=== PATIENT | female | born 1975 | race Caucasian/White ===

== ENCOUNTER 2018-01-04 02:46 | Emergency (ER) | payer MEDICAID, SELFPAY ==
[2018-01-04 02:48] VITALS: BP 134/90; PULSE 106; RESP 14; TEMP 36.2; O2SAT 99; BMI 20.6
--- NOTE | 2018-01-04 03:00 | CT_ITS ---
STUDY: CT BRAIN WITHOUT CONTRAST REASON FOR EXAM: Female, 42 years old. HEAD INJURY RADIATION DOSAGE (If Supplied By Facility): CTDIvol = ( 44.99 ) mGy, DLP = ( 745.49 ) mGycm TECHNIQUE: Transaxial CT imaging of the brain was performed without administration of intravenous contrast material. Individualized dose optimization techniques were used for this CT. COMPARISON: None. FINDINGS: Normal soft tissue structures. Normal calvarium. Normal size ventricles and extra-axial spaces for the patient's age. Normal white matter tracts of the cerebral hemispheres. Normal basal ganglia and thalami. Normal brainstem. Normal cerebellum. There is no intracranial hemorrhage. There are no findings of an acute ischemic infarction. Normal visualized paranasal sinuses. CT/Brain/Head without Contrast IMPRESSION: Normal unenhanced CT scan of the brain. Electronically Signed: Fawn Carlisle MD at 6:03 EDT Tel , Service support ,
--- NOTE | 2018-01-04 03:11 | CT_ITS ---
STUDY: CT SOFT TISSUE NECK WITH CONTRAST REASON FOR EXAM: Female, 42 years old. Neck laceration. Head injury RADIATION DOSAGE (If Supplied By Facility): CTDIvol = ( 9.32 ) mGy, DLP = ( 209.48 ) mGycm TECHNIQUE: The patient was scanned in a multi-detector CT scanner. High resolution transaxial imaging was performed following intravenous administration of 75 ml of Isovue 370 contrast material. Sagittal and coronal images were reconstructed. Individualized dose optimization techniques were used for this CT. COMPARISON: None. FINDINGS: Penetrating wound in the soft tissues on left side of the neck extending through the upper part of the sternocleidomastoid muscle. Air bubbles are seen in the paravertebral muscles from penetrating wound. There is no evidence of vascular injury. Normal bilateral parotid glands. Normal bilateral unit educator spaces. Normal bilateral parapharyngeal spaces. Normal bilateral carotid spaces. Normal bilateral sublingual and submandibular glands and spaces. Normal visualized nasopharynx. Normal retropharyngeal space. Normal perivertebral space. Normal visualized bilateral faucial tonsils. The visualized tongue, tongue base and oropharynx are normal. The visualized cervical lymph nodes (levels I-) are within normal size limits, and maintain normal morphology. There is no demonstrated solid or cystic mass lesion. There is no abnormal contrast enhancement. Normal epiglottis, bilateral vallecula and hypopharynx. The pre-epiglottic and paraglottic adipose spaces are normal. Normal visualized bilateral piriform sinuses, aryepiglottic folds, vocal cords, and arytenoid-cricoid articulations. Normal subglottic trachea. Normal bilateral lobes of the thyroid gland. Normal visualized pulmonary apices. Normal visualized paranasal sinuses. Normal visualized cervical spine. CT/Soft Tissue Neck WITH Contrast IMPRESSION: Penetrating wound in the soft tissues on left side of the neck extending through the upper part of the sternocleidomastoid muscle. Air bubbles are seen in the paravertebral muscles from penetrating wound. There is no evidence of vascular injury. Electronically Signed: Fawn Carlisle MD at 6:00 EDT Tel , Service support ,
[2018-01-04 03:19] LABS: Absolute Lymphocyte Count 1.96 X10^3/ul (0.83-4.51); Absolute Neutrophil Count 2.2 X10^3/uL (2.0-7.7); Basophil# 0.02 X10^3/uL; Basophil% 0.4 % (0-1); Eosinophil# 0.13 X10^3/uL; Eosinophils% 2.8 % (0-5); Hematocrit 37.5 % (37-47); Hemoglobin 12.9 g/dl (12.0-15.0); Lymphocyte # 1.96 X10^3/ul (4.0); Lymphocyte % 41.7 % (19-41); Mean Corp Hgb Conc 34.4 g/gl (32-36); Mean Corpuscular Hgb 32.6 pg (27.0-32.0); Mean Corpuscular Volume 94.7 fL (81-99); Mean Platelet Vol. 9.4 fl (6.2-12.0); Monocyte# 0.37 X10^3/uL; Monocyte% 7.9 % (0-10); Neutrophil # 2.21 X10^3/uL (2.7-7.7); POSITIVE COUNT NO; POSITIVE DIFFERENTIAL NO; POSITIVE MORPHOLOGY NO; Platelet Count 258 K/mm3 (150-450); RBC Distribution Width CV 12.8 % (11.6-14.6); RBC Distribution Width SD 43.4 fl (35.1-43.9); Red Blood Count 3.96 M/mm3 (4.2-5.4); White Blood Count 4.7 K/mm3 (4.4-11.0)
[2018-01-04 04:24] LABS: Anion Gap 10 (5-15); BUN 10 mg/dL (7-18); BUN/Creat Ratio 13.1 RATIO (10-20); Calcium,Total 8.3 mg/dL (8.5-10.1); Chloride 107 mmol/L (98-107); Creatinine, Serum 0.76 mg/dL (0.55-1.02); EST Glomerular Filtration Rate 88 mL/min (>60); Est Glom Filt Rate - Afr Amer 106 mL/min (>60); Estimated Creatinine Clearance 69.26 ml/min; Glucose 98 mg/dL (74-106); Potassium 3.2 mmol/L (3.5-5.1); Pregnancy, Serum, hCG Quali. NEGATIVE Negative (0-9 Nonpreg); Sodium Level 142 mmol/L (136-145)
[2018-01-04 05:07] VITALS: BP 125/82; PULSE 76; RESP 16
[2018-01-04] MEDS: Morphine 4 MG/ML Syringe IV (05:08)
[2018-01-04] MEDS: Ondansetron 4 MG/2 ML Vial IV (05:09)
--- NOTE | 2018-01-04 05:26 | ED.RN ---
laceration to left neck. Upper laceration 1cm x 2cm. Depth not assessed. Distal to laceration is a 2 cm x 0.3cm that attaches to minoo documented laceration. Third lower laceration 1cm. Bleeding controlled at present with DSD.
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
[2018-01-04 05:57] VITALS: BP 121/89; PULSE 82; RESP 16; O2SAT 99
[2018-01-04 06:01] LABS: Amphetamine Urine VISTA POSITIVE (<1000 ng/mL); Barbiturate Urine VISTA NEGATIVE (< 200 ng/mL); Benzodiazepine Urine VISTA NEGATIVE (< 200 ng/mL); Cocaine Urine VISTA NEGATIVE (< 300 ng/mL); Ecstacy Urine VISTA NEGATIVE (< 500 ng/mL); Methadone Urine VISTA NEGATIVE (< 300 ng/mL); PCP Urine VISTA NEGATIVE (< 25 ng/mL); THC Urine VISTA POSITIVE (< 50 ng/mL); Vista UDS pH Range 6
--- NOTE | 2018-01-04 06:08 | ED.RN ---
2 superficial lacerations noted to right side of neck. no bleeding noted.
== END 2018-01-04 06:11 | disposition short-term general hospital (02) ==
PROVIDERS: Emergency Provider Emergency Medicine
DX: S11.91XA Laceration without foreign body of unspecified part of neck, initial encounter (principal); X78.0XXA Intentional self-harm by sharp glass, initial encounter; Y93.9 Activity, unspecified; Y92.9 Unspecified place or not applicable; F32.9 Major depressive disorder, single episode, unspecified
CPT/HCPCS: 36415; 70450; 70491; 80048; 80307; 80320; 84703; 85025; 96374; 96375; 99285; Q9967; A4216; G0480

== ENCOUNTER 2018-01-21 00:01 | Emergency (ER) | payer MEDICAID, SELFPAY ==
[2018-01-21 00:02] VITALS: BP 127/83; PULSE 103; RESP 16; TEMP 36.7; BMI 19.7
--- NOTE | 2018-01-21 00:23 | RAD_ITS ---
STUDY: X-RAY CHEST REASON FOR EXAM: Female, 42 years old. The right lateral chest pain status post fall TECHNIQUE: PA and lateral views of the chest. COMPARISON: None. FINDINGS: No confluent infiltrate. Nodular densities overlying bilateral mid lung bases, likely representing nipple shadows. There is no demonstrated pleural abnormality. Normal size heart. Normal mediastinum and anne marie. Normal visualized pulmonary arteries. Normal visualized aortic arch and descending thoracic aorta. Normal visualized thoracic spine. Normal visualized ribs, clavicles, and shoulders. There is no demonstrated abnormality of the visualized soft tissue structures of the upper abdomen. RAD/Chest PA and Lateral IMPRESSION: No evidence of acute cardiopulmonary disease. Electronically Signed: Roel Grace MD at 0:50 EDT Tel , Service support ,
--- NOTE | 2018-01-21 00:26 | ED.VISSUMM ---
- ER Visit Summary Date of Service: 01/21/18 Chief Complaint: Right lower rib cage pain History of Present Illness: The patient is a 42 F with a right lower rib cage pain for approximately a week. She said she tripped and fell and hit the wall about a week ago she has had pain since that time. Pain increases with movement or deep breathing. She denies any other chest pain. She denies any shortness of breath. No hemoptysis. No leg pain or swelling. No abdominal pain. She denies any dysuria or hematuria. Physical Examination: Well-appearing middle-age female. Vital signs are stable. Afebrile. H EENT exam unremarkable. Neck nontender no lymphadenopathy. Lungs clear to auscultation bilaterally. Heart regular rhythm no murmur rate about 100. Abdomen is soft and nontender. Normal bowel sounds no peritoneal signs. Right upper quadrant is nontender. Her right lower rib cage is tender palpation. There is no ecchymosis or bruising. No subcu air or crepitance. No gross bony deformities. It does appear to be musculoskeletal reproducible pain. She is moving all 4 extremities. They are neurovascularly intact. Calves are nontender without edema or cords. Back exam nontender except for the right lower lateral rib cage. Spine is nontender. Neurologically she is awake alert with no focal motor deficits. Test Results: Two-view chest x-ray was obtained and shows no acute abnormality. Normal cardiac silhouette and lung sneed. No bony abnormalities. No rib fractures. Read both by myself and the radiologist. Emergency Department Course and Treatment: Patient treated with 1 Percocet p.o. Treatment Plan: Repeat exam patient is doing well at 0109. She can use Motrin and Tylenol for pain. Disposition: Discharge Impression: Acute right lateral lower rib cage musculoskeletal pain secondary to contusion This note was generated with [employer] dictation software. It may contain incorrect words, spelling, and punctuation that were not noted in review of the chart prior to signing ED Disposition - Plan for ED Patient: Chief Complaint: Flank Pain Referrals: Care Physician,No Primary [NON-STAFF] -
[2018-01-21] MEDS: oxyCODONE 5 MG Tablet 10 MG PO (00:44)
[2018-01-21 01:11] VITALS: BP 127/83; PULSE 103; RESP 15
--- NOTE | 2018-01-21 01:11 | ED.DEP ---
ED Disposition - Plan for ED Patient: Disposition: Home or Assisted Living Chief Complaint: Flank Pain Instructions: ED Contusion Chest Wall Referrals: Hamlet Ross MD [STAFF PHYSICIAN] - 1 Week if not improving Additional Instructions: Ice to rib cage. Tylenol and Motrin for pain. Your x-rays did not show any broken bones or other abnormalities.
== END 2018-01-21 01:15 | disposition home or self-care (01) ==
PROVIDERS: Emergency Provider Emergency Medicine
DX: R07.81 Pleurodynia (principal); S20.211A Contusion of right front wall of thorax, initial encounter; W01.198A Fall on same level from slipping, tripping and stumbling with subsequent striking against other object, initial encounter; Y93.9 Activity, unspecified; Y92.9 Unspecified place or not applicable
CPT/HCPCS: 71046; 99283; A4216

== ENCOUNTER 2018-02-07 16:49 | Emergency (ER) | payer MEDICAID, SELFPAY ==
[2018-02-07 16:50] VITALS: BP 106/72; PULSE 86; RESP 18; TEMP 36.8; O2SAT 100; BMI 19.5
[2018-02-07 17:25] VITALS: BP 115/75; PULSE 82; RESP 14; O2SAT 98
[2018-02-07] MEDS: oxyCODONE 5 MG Tablet PO (17:36)
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
--- NOTE | 2018-02-07 18:22 | ED.DEP ---
ED Disposition - Plan for ED Patient: Chief Complaint: Upper Extremity Injury Instructions: ED Shoulder Pain [facility] Prescriptions: Oxycodone HCl/Acetaminophen [Percocet 5/325] 1 tab PO Q6H PRN PRN 3 Days #12 tab PRN Reason: Pain Naproxen [Naprosyn] 500 mg PO BID PRN #20 tab Referrals: [facility] Beronica Lyman [Primary Care Provider] - Ben Fernandez MD [STAFF PHYSICIAN] - 3-5 Days
== END 2018-02-07 18:59 | disposition home or self-care (01) ==
PROVIDERS: Emergency Provider Emergency Medicine
DX: M25.512 Pain in left shoulder (principal)
CPT/HCPCS: 73030; 99283

== ENCOUNTER 2018-04-10 21:36 | Emergency (ER) | payer MEDICAID, SELFPAY ==
[2018-04-10 21:37] VITALS: BP 112/86; PULSE 101; RESP 20; TEMP 37.1; O2SAT 99; BMI 20.5
--- NOTE | 2018-04-10 22:03 | RAD_ITS ---
STUDY: X-RAY - LEFT HAND REASON FOR EXAM: Female, 42 years old. Fall yesterday. Pain in second digit. TECHNIQUE: 3 view(s) of the hand. COMPARISON: None. FINDINGS: Normal radiocarpal articulation. Normal distal radioulnar joint. Normal visualized carpal bones. Normal carpal articulations Normal carpometacarpal articulation of the thumb. Normal second through fifth carpometacarpal joints. Normal metacarpi. 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 Normal interphalangeal joint of the thumb. Normal proximal and distal phalanges of the thumb. Normal metacarpophalangeal joints of the second through fifth fingers. Normal proximal and distal interphalangeal joints of the second through fifth fingers. Normal phalanges of the second through fifth fingers. The soft tissue structures are unremarkable. RAD/Hand Min 3 Views IMPRESSION: No acute fracture or dislocation. Electronically Signed: Kilo Navarrete DO at 22:42 EDT Tel [phone], Service support ,
--- NOTE | 2018-04-10 22:04 | ED.VISSUMM ---
- ER Visit Summary Date of Service: 04/10/18 Chief Complaint: Cough, shortness of breath History of Present Illness: The patient is a 42 F presenting with cough, shortness of breath. She states that the symptoms have been ongoing for the past 2 weeks. She has a productive cough, subjective fever, rhinorrhea, sore throat. She has tried NyQuil and Mucinex at home with no relief. She denies sick contacts. Physical Examination: Vitals are stable. Patient is afebrile. Alert no acute distress. HEENT exam mild pharyngeal erythema with no exudate, uvula midline Neck is supple. Lungs are clear and equal bilaterally. Heart is regular rate and rhythm. Abdomen is soft nontender nondistended. Extremities are unremarkable. Skin is warm and dry. No focal neurologic deficit. Remainder of exam is unremarkable. Emergency Department Course and Treatment: Patient is given albuterol, Atrovent. Chest x-ray shows no acute process. Left hand x-ray shows no acute process. Her left index finger was put in an aluminum foam splint. She is given Naprosyn for pain. She is given prescription for Tessalon Perles and albuterol MDI. Her pulse ox with ambulation is 100% on room air. She is advised to follow-up with primary care physician. Advised return to ED if worsening complaints. Disposition: Discharge home Impression: Bronchitis, left index finger contusion This note was generated with [employer] dictation software. It may contain incorrect words, spelling, and punctuation that were not noted in review of the chart prior to signing ED Disposition - Plan for ED Patient: Chief Complaint: Shortness of Breath Instructions: ED Upper Resp Infec No Abx Tx Prescriptions: Benzonatate [Tessalon Perle] 200 mg PO TID PRN PRN #20 capsule PRN Reason: Cough Naproxen [Naprosyn] 500 mg PO BID PRN #20 tablet Referrals: Joyce Lyman,Beronica Johnson [Primary Care Provider] -
[2018-04-10] MEDS: Ipratropium/Albuterol Sulfate 3 ML AMPUL.NEB INHALATION (22:13)
[2018-04-10 22:20] VITALS: PULSE 74; RESP 17; O2SAT 95
--- NOTE | 2018-04-10 22:30 | RAD_ITS ---
STUDY: X-RAY CHEST REASON FOR EXAM: Female, 42 years old. Shortness of breath. Cough. TECHNIQUE: PA and lateral views of the chest. COMPARISON: January 21, 2018. FINDINGS: The lungs are hyperexpanded. There is no new mass or infiltrate. There is no demonstrated pleural abnormality. Normal size heart. Normal mediastinum and anne marie. Normal visualized pulmonary arteries. Normal visualized aortic arch and descending thoracic aorta. Normal visualized thoracic spine. Normal visualized ribs, clavicles, and shoulders. There is no demonstrated abnormality of the visualized soft tissue structures of the upper abdomen. RAD/Chest PA and Lateral IMPRESSION: No acute cardiopulmonary disease or interval change. Electronically Signed: Kilo Navarrete DO at 22:41 EDT Tel [phone], Service support ,
[2018-04-10 22:58] VITALS: O2SAT 100
--- NOTE | 2018-04-10 23:06 | ED.DEP ---
ED Disposition - Plan for ED Patient: Chief Complaint: Shortness of Breath Instructions: ED Upper Resp Infec No Abx Tx Prescriptions: Benzonatate [Tessalon Perle] 200 mg PO TID PRN PRN #20 capsule PRN Reason: Cough Naproxen [Naprosyn] 500 mg PO BID PRN #20 tablet Referrals: [facility],Beronica Johnson [Primary Care Provider] -
--- NOTE | 2018-04-11 11:22 | CM.ED ---
ED CALLBACK: Follow-up call placed to patient. No answer. Voicemail left with return contact information.
== END 2018-04-10 23:42 | disposition home or self-care (01) ==
PROVIDERS: Emergency Provider Emergency Medicine
DX: J40 Bronchitis, not specified as acute or chronic (principal); S60.022A Contusion of left index finger without damage to nail, initial encounter; R19.7 Diarrhea, unspecified; X58.XXXA Exposure to other specified factors, initial encounter; Y93.9 Activity, unspecified; Y92.9 Unspecified place or not applicable
CPT/HCPCS: 71046; 73130; 94640; 99283

== ENCOUNTER 2018-04-18 08:20 | Emergency (ER) | payer MEDICAID, SELFPAY ==
[2018-04-18 08:21] VITALS: BP 136/83; PULSE 106; RESP 16; TEMP 36.3; O2SAT 100; BMI 19.1
[2018-04-18 08:27] VITALS: BP 132/89; PULSE 76; RESP 18; O2SAT 99
--- NOTE | 2018-04-18 08:31 | ED.VISSUMM ---
- ER Visit Summary Date of Service: 04/18/18 Chief Complaint: Abdominal pain, nausea, vomiting diarrhea with onset yesterday at approximately 1700. History of Present Illness: The patient is a 42 F who presents with numerous complaints. She complains of bifrontal headache. Denies photophobia, change in vision or double vision. She denies earache or muffled hearing. She does complain of sore throat. There is no complaint of nasal congestion. She does report cough, which is nonproductive. She denies chest discomfort. She states she is vomited 10 times since onset and 4 or 5 loose stools. She has not noted blood in emesis or stool and no mucus in stool. She states that she has had no ill contacts. She has not been on antibiotics in the past month. She reports orthostatic symptoms, dry mouth and thirst. She denies decreased urine output. She also complains of mild chills. She does complain of weakness without paresthesia, anesthesia or motor weakness. She did report subjective fever. Please read written note for complete detail Physical Examination: Vital signs noted and blood pressure slightly elevated 136/83 and heart rate 106. Monitor reveals a sinus tachycardia. Head is atraumatic normocephalic. Pupils are equal round reactive. Extraocular muscles are intact. TMs are pearly white with landmarks noted. Nares patent with no drainage. Posterior pharynx without erythema or exudate. Uvula is midline. Tongue and buccal mucosa are dry. There is no dysphonia or dysphasia. Trachea is midline. There is no stridor with auscultation of the neck. Heart is regular without murmur, gallop or rub. S1 and S2 are normal. Lungs are clear to auscultation with good movement of air bilaterally. Abdomen soft with tenderness without guarding rebound tenderness. There is no CVA tenderness noted. Neuro exam is nonfocal. Please read written note for complete detail Test Results: None were obtained Emergency Department Course and Treatment: Since patient has no history of renal disease, diabetes and on no diuretic laboratory testing was not obtained. Furthermore with onset less than 24 hours based on literature laboratory testing is not indicated. She was treated with 1 L of normal saline and received 4 mg of Zofran IV push for her nausea. She also was treated orally with Imodium for the diarrhea and Bentyl for her cramping abdominal discomfort. Ms. Gonzalez was reassessed at 0950. She has had no vomiting or diarrhea since arrival. She has not urinated and has no urge to urinate. A second liter of normal saline was ordered. She received an additional 500 cc bolus. Treatment Plan: Since patient's arrival she had no diarrhea. She states her nausea has passed. She has passed p.o. challenge. She does have urge to urinate. Disposition: Discharged home in stable improved condition Impression: Abdominal pain with nausea, vomiting diarrhea Moderate dehydration This note was generated with [employer] dictation software. It may contain incorrect words, spelling, and punctuation that were not noted in review of the chart prior to signing ED Disposition - Plan for ED Patient: Disposition: Home or Assisted Living Chief Complaint: Nausea/Vomiting/Diarrhea Instructions: ED Vomiting Diarrhea Nonspecific Ad Referrals: Beronica Garzon [Primary Care Provider] - 3-5 Days if not improving
[2018-04-18] MEDS: Ondansetron 4 MG/2 ML Vial IV (08:43)
[2018-04-18] MEDS: Dicyclomine 10 MG Capsule 20 MG PO (08:43)
[2018-04-18] MEDS: Loperamide 2 MG Capsule 4 MG PO (08:43)
[2018-04-18] MEDS: 0.9% Normal Saline 1,000 ML 1000 ML IV (08:43)
[2018-04-18] MEDS: 0.9% Normal Saline 1,000 ML 500 ML IV (10:20)
[2018-04-18 10:23] VITALS: BP 135/94; PULSE 94; RESP 17; O2SAT 95
[2018-04-18 12:51] VITALS: BP 127/69; PULSE 73; RESP 15; O2SAT 100
== END 2018-04-18 12:52 | disposition home or self-care (01) ==
PROVIDERS: Emergency Provider Emergency Medicine
DX: R10.9 Unspecified abdominal pain (principal); R11.2 Nausea with vomiting, unspecified; R19.7 Diarrhea, unspecified; E86.0 Dehydration; J02.9 Acute pharyngitis, unspecified; R05 Cough; Z87.891 Personal history of nicotine dependence
CPT/HCPCS: 96361; 96374; 99283; J7030; J7040; J2405

== ENCOUNTER 2018-06-13 11:52 | Emergency (ER) | payer MEDICAID, SELFPAY ==
[2018-06-13 11:54] VITALS: BP 111/71; PULSE 107; RESP 17; TEMP 36.7; O2SAT 100; BMI 19.1
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
[2018-06-13] MEDS: oxyCODONE 5 MG Tablet PO (12:29)
== END 2018-06-13 13:16 | disposition home or self-care (01) ==
PROVIDERS: Emergency Provider Emergency Medicine
DX: S43.102A Unspecified dislocation of left acromioclavicular joint, initial encounter (principal); Y04.2XXA Assault by strike against or bumped into by another person, initial encounter; Y93.9 Activity, unspecified; Y92.9 Unspecified place or not applicable; Z72.0 Tobacco use
CPT/HCPCS: 73000; 99283

== ENCOUNTER 2019-08-05 06:53 | Emergency (ER) | payer MEDICAID, SELFPAY ==
[2019-08-05 06:55] VITALS: BP 128/102; PULSE 107; RESP 20; TEMP 36.6; O2SAT 98; BMI 21.6
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
[2019-08-05] MEDS: Ondansetron 4 MG/2 ML Vial IV (07:24)
[2019-08-05] MEDS: Morphine 4 MG/ML Syringe IV (07:24)
[2019-08-05 07:45] LABS: Absolute Lymphocyte Count 2.05 X10^3/uL (0.83-4.51); Absolute Neutrophil Count 4.3 X10^3/uL (2.0-7.7); Basophil# 0.03 X10^3/uL; Basophil% 0.4 % (0-1); Eosinophils% 1.4 % (0-5); Hematocrit 35.2 % (37-47); Hemoglobin 11.9 g/dL (12.0-15.0); Lymphocyte # 2.05 X10^3/ul (4.0); Mean Corp Hgb Conc 33.8 g/dL (32-36); Mean Corpuscular Hgb 31.8 pg (27.0-32.0); Mean Corpuscular Volume 94.1 fL (81-99); Mean Platelet Vol. 9.7 fl (6.2-12.0); Monocyte# 0.61 X10^3/uL; Monocyte% 8.6 % (0-10); NRBC Flagged by Analyzer 0 % (0-5); Neutrophil # 4.26 X10^3/uL (2.7-7.7); Neutrophil % 60.3 % (47-70); Platelet Count 346 K/mm3 (150-450); RBC Distribution Width CV 12.8 % (11.6-14.6); Red Blood Count 3.74 M/mm3 (4.2-5.4); White Blood Count 7.1 K/mm3 (4.4-11.0)
[2019-08-05 08:02] LABS: ALB/GLOB Ratio 1.2 RATIO (0.9-2.4); AST(SGOT) 28 U/L (15-37); Alanine Aminotransfer ALT/SGPT 26 U/L (13-56); Albumin, Serum 4.2 g/dL (3.2-5.0); Alkaline Phosphatase 39 U/L (45-117); Anion Gap 9 (5-15); BUN 20 mg/dL (7-18); BUN/Creat Ratio 23.4 RATIO (10-20); Calcium,Total 8.8 mg/dL (8.5-10.1); Chloride 108 mmol/L (98-107); Creatinine, Serum 0.85 mg/dL (0.55-1.02); EST Glomerular Filtration Rate 77 mL/min (>60); Est Glom Filt Rate - Afr Amer 93 mL/min (>60); Estimated Creatinine Clearance 60.67 ml/min; Globulin 3.5 g/dL (2.2-4.2); Glucose 112 mg/dL (74-106); Potassium 3.7 mmol/L (3.5-5.1); Protein, Total 7.7 g/dL (6.4-8.2); Sodium Level 140 mmol/L (136-145)
[2019-08-05 09:03] VITALS: BP 110/67; PULSE 71; RESP 16; O2SAT 98
[2019-08-05 09:08] LABS: Color, Urine Yellow (Yellow); Glucose, Dipstick Normal (Normal); Ketone-Dipstick Negative (Negative); Leukocyte Esterase-Dipstick 25 /ul (Negative); Mucous, Urine 0 SEEN /hpf (<or=2+); Nitrite-Dipstick Positive (Negative); Occult Blood-Urine 25 /ul (Negative); Protein-Dipstick 30 mg/dl (Negative); Urine Bilirubin Dipstick Negative (Negative); Urine Clarity Sl. Cloudy (Clear); Urine Urobilinogen Normal (Normal); Urine pH 6.5 (5.0 - 8.0)
[2019-08-05 09:12] LABS: Internal QC Validated? YES +Cl - CLEAR BKGD; Pregnancy, Urine Negative Negative
[2019-08-05 09:21] LABS: Bacteria RARE /hpf (None Seen); Red Blood Cells-Urine 0-5 SEEN /hpf (0-5); Squamous Epithelial Cells - UA 5-10 SEEN /hpf (5-10); White Blood Cells 0-5 SEEN /hpf (0-5)
[2019-08-05 09:51] VITALS: BP 111/56; PULSE 88; RESP 14; O2SAT 99
== END 2019-08-05 09:57 | disposition home or self-care (01) ==
PROVIDERS: Emergency Provider Emergency Medicine; PCP Internal Medicine
DX: S20.212A Contusion of left front wall of thorax, initial encounter (principal); S20.211A Contusion of right front wall of thorax, initial encounter; Y04.0XXA Assault by unarmed brawl or fight, initial encounter; Y93.9 Activity, unspecified; Y92.9 Unspecified place or not applicable
CPT/HCPCS: 74177; 80053; 81001; 81025; 85025; 96374; 96375; 99283; Q9967; A4216; J2405

== ENCOUNTER 2020-06-11 16:01 | Emergency (ER) | payer MEDICAID, SELFPAY ==
[2020-06-11 16:02] VITALS: BP 125/46; PULSE 86; RESP 15; TEMP 36.4; O2SAT 100; BMI 19.5
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
[2020-06-11] MEDS: Ketorolac 30 MG/ML Syringe IM (17:22)
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
== END 2020-06-11 18:49 | disposition home or self-care (01) ==
PROVIDERS: Emergency Provider Emergency Medicine
DX: S20.212A Contusion of left front wall of thorax, initial encounter (principal); Y04.0XXA Assault by unarmed brawl or fight, initial encounter; Y93.9 Activity, unspecified; Y92.9 Unspecified place or not applicable; Z87.81 Personal history of (healed) traumatic fracture
CPT/HCPCS: 71101; 96372; 99284

== ENCOUNTER 2020-11-01 16:20 | Emergency (ER) | payer MEDICAID, SELFPAY ==
[2020-11-01 16:21] VITALS: BP 129/95; PULSE 120; RESP 16; TEMP 36.4; O2SAT 100; BMI 19.1
--- NOTE | 2020-11-01 16:35 | RAD_ITS ---
STUDY: X-RAY - LEFT SHOULDER REASON FOR EXAM: Female, 45 years old. injury TECHNIQUE: 2 view(s) of the shoulder. COMPARISON: None. FINDINGS: Normal glenohumeral articulation. There is degenerative arthrosis of the acromioclavicular joint without inferior osseous spur formation. Slight proximal subluxation of the distal clavicle in relation to the acromion suggests a prior AC joint injury. Normal acromion. Normal humeral head and visualized proximal humerus. The soft tissue structures are unremarkable. There is no demonstrated fracture. Normal visualized pulmonary apex. RAD/Shoulder min 2 Views IMPRESSION: 1. No acute process 2. Slight proximal subluxation of the distal clavicle in relation to the acromion suggests a prior AC joint injury. Electronically Signed: Rory Trevizo MD at 17:46 EDT , Service support ,
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
[2020-11-01] MEDS: oxyCODONE 5 MG Tablet 10 MG PO (16:45)
[2020-11-01 17:16] VITALS: PULSE 72; RESP 15; O2SAT 97
== END 2020-11-01 17:18 | disposition home or self-care (01) ==
LOC: ED 17:07
PROVIDERS: Emergency Provider Emergency Medicine
DX: S40.012A Contusion of left shoulder, initial encounter (principal); Y04.0XXA Assault by unarmed brawl or fight, initial encounter; Y93.9 Activity, unspecified; Y92.9 Unspecified place or not applicable
CPT/HCPCS: 73030; 99284

== ENCOUNTER 2021-02-07 19:11 | Emergency (ER) | payer MEDICAID, SELFPAY ==
[2021-02-07 19:12] VITALS: BP 111/78; PULSE 86; RESP 16; TEMP 36.7; O2SAT 100; BMI 21.9
--- NOTE | 2021-02-07 19:38 | EX.ED.DYSGE1 ---
HPI History of Present Illness Chief Complaint: General Illness Informant: patient Narrative Narrative: Patient is a 45-year-old female who presents to the emergency department for Covid test. She states that she was recently incarcerated. She was exposed to Covid and released. She had a negative Covid test at that time. Shortly after being released she developed symptoms including cough, sore throat, chills, vomiting. This started approximately 4 days ago. She has not been taking anything for her symptoms. She did not get vaccinated for Covid. She denies any significant chest pain or shortness of breath. No headache. No neck stiffness. No rashes. She developed painful sores in her mouth. PFSH PFSH Home Medications ondansetron 4 mg PO Q8H PRN 4 Days #10 tab 02/07/21 [Rx Last Taken Unknown] Allergy/AdvReac Type Severity Reaction Status Date / Time acetaminophen [From Vicodin] AdvReac Nausea Verified 02/07/21 19:14 hydrocodone [From Vicodin] AdvReac Nausea Verified 02/07/21 19:14 hydromorphone HCl AdvReac Nausea Verified 02/07/21 19:14 [From Dilaudid] Social History Smoking Status: Never smoker ROS ROS ED Constitutional Constitutional ED: Denies fever(s) Eyes Eyes: Denies change in vision ENT ENT ED: Reports sore throat; Denies epistaxis Cardiovascular Cardiovascular: Denies chest pain Respiratory/Chest Respiratory/Chest: Reports cough; Denies dyspnea, dyspnea on exertion or sputum Gastrointestinal Gastrointestinal: Reports nausea and vomiting; Denies abdominal pain Genitourinary Genitourinary ED: Denies dysuria, hematuria or urinary frequency Musculoskeletal Musculoskeletal: Denies back pain or neck pain Integumentary Denies rash Neurologic Neurologic: Denies dizziness, headache(s) or weakness EXAM Physical Exam Const Vital Signs: 02/07/21 19:12 02/07/21 19:39 Temperature 98.1 F Temperature Source Temporal Pulse Rate 86 Respiratory Rate 16 Respiratory Effort Normal Non-Labored Blood Pressure 111/78 Blood Pressure Mean 89 Pulse Ox 100 Oxygen Delivery Method Room Air Positive well nourished and well developed General Appearance ED: well developed and NAD HEENT Reports normocephalic, head/scalp atraumatic and moist mucous membranes HEENT Narrative: Small aphthous ulcer present on the inside of left cheek. Eyes PERRL and EOMs intact bilaterally Neck supple Resp normal respiratory effort and clear to auscultation bilaterally Auscultation: Negative for rales, rhonchi or wheezes Cardio regular rate, regular rhythm and no murmurs GI normal to inspection, nondistended, normoactive bowel sounds and non-tender Palpation: soft; Negative for guarding or rebound tenderness present Extremity normal to inspection General Extremety ED: Negative for edema or tenderness General Extremity: Negative for edema Neuro Sensorium / Orientation: alert Motor Exam: strength 5/5 throughout Psych mental status grossly normal Skin no rashes or lesions noted MDM MDM MDM Narrative Medical decision making narrative: Patient presents the ED for URI symptoms. She is concerned about Covid as she did have a positive exposure. She was tested for the virus but this was prior to her developing any symptoms. On arrival to the ED vital signs within normal limits. She has benign physical exam. Will recheck Covid at this time. Covid test did come back positive. Will recommend symptomatic treatment. She is given a prescription for Zofran. No episodes of vomiting throughout ED stay. She has not had any oxygen desaturations. Patient is to self quarantine. I did advise obtaining a pulse oximeter she develops any shortness of breath to track oxygen saturation. Return precautions are reviewed with her. She understands and is agreeable this plan. Discharged home in stable condition. All questions were answered. Discharge Plan Triage Chief Complaint: General Illness ED Provider: Pierre Majano Dx/Rx/DC Orders Clinical Impression: COVID-19 Instructions: Coronavirus Disease 2019 (COVID-19): Caring for Yourself or Others Prescriptions: New ondansetron 4 mg tablet,disintegrating 4 mg PO Q8H PRN (Reason: nausea and vomiting) 4 Days Qty: 10 RF: 0 Primary Care Provider: Care Physician,No Primary Referrals: Care Physician,No Primary [Primary Care Provider] - 1 Week Disposition Disposition: Home, Self Care Discharge Date/Time: 02/07/21 20:32
== END 2021-02-07 20:32 | disposition home or self-care (01) ==
PROVIDERS: Emergency Provider Emergency Medicine
DX: U07.1 COVID-19 (principal)
CPT/HCPCS: 87426; 99282

== ENCOUNTER 2021-02-08 13:27 | Emergency (ER) | payer MEDICAID, SELFPAY ==
[2021-02-07 19:12] VITALS: BMI 21.9
[2021-02-08 13:28] VITALS: BP 125/87; PULSE 83; RESP 18; TEMP 35.7; O2SAT 100; BMI 21.5
[2021-02-08 14:05] VITALS: TEMP 36.7
--- NOTE | 2021-02-08 14:06 | EX.ED.DYSGE1 ---
HPI History of Present Illness Chief Complaint: Cold Sx Informant: patient Narrative Narrative: 45-year-old female presents out of concerns for COVID-19. She states that she was in [facility] and was released last due to a Covid outbreak. She states that she was tested in [facility] and was negative. When she returned home on night she began to feel ill. Since then she developed headache rhinorrhea sore throat body aches cough subjective fever and loss of taste and smell. She also endorses diarrhea. She has been trying to drink fluids but states nothing seems to taste very good to her. She has not been vaccinated. PFSH PFS Home Medications NK 02/08/21 [History Last Taken Unknown] Allergy/AdvReac Type Severity Reaction Status Date / Time acetaminophen [From Vicodin] AdvReac Nausea Verified 02/08/21 13:30 hydrocodone [From Vicodin] AdvReac Nausea Verified 02/08/21 13:30 hydromorphone HCl AdvReac Nausea Verified 02/08/21 13:30 [From Dilaudid] Social History (Updated 02/08/21 @ 14:[address] Ad Vogt, DO) Smoking Status: Never smoker substance use type: does not use ROS ROS ED Constitutional Constitutional ED: Reports chills and subjective; Denies weight loss Eyes Eyes: Denies change in vision or diplopia ENT ENT ED: Reports rhinorrhea and sore throat; Denies ear pain Cardiovascular Cardiovascular: Denies chest pain, orthopnea, palpitations or racing heartbeat Respiratory/Chest Respiratory/Chest: Reports cough; Denies dyspnea or orthopnea Gastrointestinal Gastrointestinal: Reports diarrhea; Denies abdominal pain, nausea or vomiting Genitourinary Genitourinary ED: Denies dysuria, hematuria or urinary frequency Musculoskeletal Musculoskeletal: Reports myalgias; Denies arthralgias Integumentary Denies abscess or rash Neurologic Neurologic: Reports headache(s); Denies weakness Psychiatric Psychiatric: Denies anxiety, depression, suicidal ideation or suicidal thoughts Endocrine Endocrinology: Denies polydipsia, polyphagia or polyuria Allergic/Immunologic Allergic/Immunologic ED: Denies mouth swelling, tongue swelling or urticaria EXAM Physical Exam Const Vital Signs: 02/08/21 13:28 02/08/21 13:53 02/08/21 14:05 Temperature 96.2 F L 98.1 F Temperature Source Temporal Oral Pulse Rate 83 Respiratory Rate 18 Respiratory Effort Normal Non-Labored Respiratory Pattern Normal Blood Pressure 125/87 H Blood Pressure Mean 99 Pulse Ox 100 Oxygen Delivery Method Room Air Positive well nourished and well developed General Appearance ED: well developed HEENT Reports normocephalic, head/scalp atraumatic and moist mucous membranes Eyes PERRL and EOMs intact bilaterally Neck no lymphadenopathy, supple and no JVD Resp normal respiratory effort and clear to auscultation bilaterally Cardio regular rate, regular rhythm and no murmurs GI normal to inspection, nondistended, normoactive bowel sounds and non-tender Palpation: soft Back/Spine no CVA tenderness and normal ROM Extremity normal to inspection General Extremety ED: Negative for edema General Extremity: Negative for edema Neuro oriented x3 and CN's II-XII intact bilaterally Sensorium / Orientation: alert Motor Exam: strength 5/5 throughout Psych mental status grossly normal Mood & Affect: Negative for depressed or tearful Skin no rashes or lesions noted and no wounds MDM MDM MDM Narrative Medical decision making narrative: Covid test was performed and is positive. Patient will be advised to quarantine. Return if worsening or concerns. Discharge Plan Triage Chief Complaint: Cold Sx ED Provider: Ad Vogt Dx/Rx/DC Orders Clinical Impression: COVID-19 Instructions: Coronavirus Disease 2019 (COVID-19): Caring for Yourself or Others Prescriptions: No Action NK RF: 0 Primary Care Provider: Care Physician,No Primary Referrals: Care Physician,No Primary [Primary Care Provider] - Disposition Disposition: Home, Self Care
[2021-02-08 14:18] VITALS: BP 125/86; PULSE 81; RESP 12; O2SAT 100
== END 2021-02-08 14:23 | disposition home or self-care (01) ==
PROVIDERS: Emergency Provider Emergency Medicine
DX: U07.1 COVID-19 (principal)
CPT/HCPCS: 87426; 99282

== ENCOUNTER 2021-02-10 10:11 | Emergency (ER) | payer MEDICAID, SELFPAY ==
[2021-02-10 10:12] VITALS: BP 109/73; PULSE 83; RESP 18; TEMP 36.6; O2SAT 100; BMI 21.9
[2021-02-10 10:13] VITALS: BP 109/73; PULSE 83; RESP 18; TEMP 36.6; O2SAT 100
--- NOTE | 2021-02-10 10:32 | EDS_ITS ---
HPI History of Present Illness Chief Complaint: Cough Informant: patient Onset/Context/Timing Onset: Weeks Context: gradual Timing: Continuous Current Severity: Mild Maximum Severity: Mild Associated Symptoms cough Narrative Narrative: 45-year-old female no seen past medical or surgical history currently on no medications. Had symptoms for little over a week. On Sunday got tested and was Covid positive. He is feeling short of breath. Also states she has had nausea vomiting and diarrhea. Denies fever. No hemoptysis. PE Risk Factors: Negative for Cancer, OCP + Smoking + > 35, Prior DVT or PE, Recent immobilization, Recent surgery and Recent travel Prior similar symptoms: No Recent Illness/Hospitalization: No PFSH PFSH no medical history Home Medications NK 02/08/21 [History Last Taken Unknown] ondansetron 4 mg PO Q8H PRN 4 Days #10 tab 02/10/21 [Rx Last Taken Unknown] Allergy/AdvReac Type Severity Reaction Status Date / Time acetaminophen [From Vicodin] AdvReac Nausea Verified 02/10/21 10:14 hydrocodone [From Vicodin] AdvReac Nausea Verified 02/10/21 10:14 hydromorphone HCl AdvReac Nausea Verified 02/10/21 10:14 [From Dilaudid] no surgical history Social History Smoking Status: Never smoker substance use type: does not use ROS ROS ED ROS Narrative Cough, nausea, vomiting and diarrhea. Review of Systems ROS Unobtainable: Denies due to encephalopathy Constitutional Constitutional ED: Denies fever(s) Eyes Eyes: Denies change in vision ENT ENT ED: Denies ear pain or sore throat Cardiovascular Cardiovascular: Denies chest pain Respiratory/Chest Respiratory/Chest: Reports cough and dyspnea Gastrointestinal Gastrointestinal: Reports diarrhea, nausea and vomiting; Denies abdominal pain Genitourinary Genitourinary ED: Denies dysuria Musculoskeletal Musculoskeletal: Denies myalgias Integumentary Denies rash Neurologic Neurologic: Denies headache(s) Psychiatric Psychiatric: Denies depression Endocrine Endocrinology: Denies polyuria Hematologic/Lymphatic Hematologic/Lymphatic: Denies easy bruising Allergic/Immunologic Allergic/Immunologic ED: Denies urticaria EXAM Physical Exam Narrative Exam Narrative: Middle-aged female no acute distress. Blood pressure 109/73. Pulse 83 and pulse ox 100% on room air no signs of hypoxia. HEENT exam unremarkable. Mildly dry mucous memories. Neck nontender no lymphadenopathy. Lungs clear to auscultation bilaterally. No rales, rhonchi or wheezing. Equal symmetrical. Heart regular rhythm rate about 80 no murmur. Abdomen soft nontender. Normal bowel sounds no peritoneal signs. Moving all 4 extremities. Calves nontender no edema. Back nontender. Neurologically awake and alert. Const Vital Signs: 02/10/21 10:12 02/10/21 10:13 02/10/21 10:48 Temperature 98 F 98 F Temperature Source Temporal Temporal Pulse Rate 83 83 Respiratory Rate 18 18 Respiratory Effort Non-Labored Short of Breath Blood Pressure 109/73 109/73 Blood Pressure Mean 85 85 Pulse Ox 100 100 Oxygen Delivery Method Room Air Room Air 02/10/21 11:13 02/10/21 12:00 Temperature 98 F 97.9 F Temperature Source Temporal Temporal Pulse Rate 81 69 Respiratory Rate 14 21 H Respiratory Effort Blood Pressure 113/69 108/56 L Blood Pressure Mean 83 73 Pulse Ox 100 99 Oxygen Delivery Method Room Air Room Air Positive well nourished and well developed; Negative for obese, cachectic, contractures or unkempt General Appearance ED: well developed and NAD; Negative for unkempt, cachectic, contractures or pallor Nutritional Appearance: Negative for cachectic or obese HEENT Reports dry mucous membranes; Denies moist mucous membranes atraumatic; Negative for trauma or tenderness Mouth ED: Yes dry mucous membranes Mouth: dry mucous membranes Eyes PERRL and EOMs intact bilaterally Neck no lymphadenopathy, supple, no meningeal signs and no JVD General: Negative for tenderness Resp normal respiratory effort and clear to auscultation bilaterally Auscultation: Negative for rales, rhonchi or wheezes Cardio regular rate, regular rhythm, S1 normal heart sound, S2 normal heart sound and no murmurs GI non-tender, non-distended and no masses Auscultation: normoactive bowel sounds Palpation: soft; Negative for tender, guarding or rebound tenderness present Back/Spine no CVA tenderness and normal to inspection General Back: Negative for CVA tenderness or tenderness Extremity normal to inspection General Extremety ED: Negative for edema or tenderness General Extremity: Negative for edema Neuro oriented x3 and CN's II-XII intact bilaterally Sensorium / Orientation: alert, oriented to person, oriented to place and orientation impaired; Negative for oriented to time, confused, lethargic or stuporous Motor Exam: strength 5/5 throughout Psych Appearance: Negative for unkempt Skin no wounds and skin turgor normal General Skin Exam: Negative for jaundice or pallor Lesions: no lesions Rashes: no rashes MDM MDM MDM Narrative Medical decision making narrative: Reportedly Covid positive patient with shortness of breath. Normal vital signs. Pulse ox 100%. Chest x-ray. Due to the nausea vomiting diarrhea I will get a BMP. Patient be treated IV fluids and IV Zofran. Mostly symptomatic treatment. She clinically does not need admission. Repeat exam at 12:55 PM. Patient is doing fine. We discussed her chest x-ray and electrolytes. She will be discharged home. I will refer her to the monoclonal antibody therapy hotline but she may not be a candidate. Lab Data Attestation: I reviewed the patient's lab results. Lab results narrative: Electrolytes unremarkable and potassium 3.1 normal gap 5. Creatinine 0.5. Glucose 94. Labs: Laboratory Results - last 24 hr 02/10/21 11:25 Sodium 139 Potassium 3.1 L Chloride 105 Carbon Dioxide 29.0 Anion Gap 5 BUN 11 Creatinine 0.53 L Estim Creat Clear Calc 96.28 Est GFR (MDRD) Af Amer 159 Est GFR (MDRD) Non-Af 131 BUN/Creatinine Ratio 20.6 H Glucose 94 Calcium 8.1 L Radiography Chest X-Ray - ED: 1 View, Read by ED Physician, Heart, Lungs, Mediastinum and No Acute Disease Diagnostic Testing: Old right rib fracture healed. No acute disease. No infiltrates. Discharge Plan Triage Chief Complaint: Cough ED Provider: Praful Knox Dx/Rx/DC Orders Clinical Impression: COVID-19 Instructions: Coronavirus Disease 2019 (COVID-19): Overview Prescriptions: New ondansetron 4 mg tablet,disintegrating 4 mg PO Q8H PRN (Reason: nausea and vomiting) 4 Days Qty: 10 RF: 0 No Action NK RF: 0 Primary Care Provider: Care Physician,No Primary Referrals: Brad Almanzar MD [NON-STAFF] - 3-5 Days Care Physician,No Primary [Primary Care Provider] - Activity Restrictions/Additional Instructions: Plenty of fluids and rest. Eat potassium rich foods such as fruits and v egetables, potatoes and bananas have a lot of potassium in it your potassium is little low today from the nausea vomiting and diarrhea. Follow-up with your primary care physician. Return if feeling worse. I will refer you to the monoclonal antibody therapy hotline. You may not be a candidate for this therapy but they can decide that with you. Zofran as needed for nausea. Disposition Disposition: Home, Self Care
[2021-02-10 11:13] VITALS: BP 113/69; PULSE 81; RESP 14; TEMP 36.6; O2SAT 100
[2021-02-10] MEDS: 0.9% Normal Saline 1,000 ML 1000 ML IV (11:24)
[2021-02-10] MEDS: Ondansetron 4 MG/2 ML Vial IV (11:24)
[2021-02-10 11:45] LABS: Anion Gap 5 (5-15); BUN 11 mg/dL (7-18); BUN/Creat Ratio 20.6 RATIO (10-20); Calcium,Total 8.1 mg/dL (8.5-10.1); Chloride 105 mmol/L (98-107); Creatinine, Serum 0.53 mg/dL (0.55-1.02); EST Glomerular Filtration Rate 131 mL/min (>60); Est Glom Filt Rate - Afr Amer 159 mL/min (>60); Estimated Creatinine Clearance 96.28 ml/min; Glucose 94 mg/dL (74-106); Potassium 3.1 mmol/L (3.5-5.1); Sodium Level 139 mmol/L (136-145)
[2021-02-10 12:00] VITALS: BP 108/56; PULSE 69; RESP 21; TEMP 36.6; O2SAT 99
--- NOTE | 2021-02-10 12:40 | RAD_ITS ---
STUDY: X-RAY CHEST REASON FOR EXAM: Female, 45 years old. covid . Shortness of breath. TECHNIQUE: Single AP portable view of the chest. COMPARISON: Comparison is made with prior study 04/10/2018. FINDINGS: EKG electrodes are seen. Minimal increased markings are seen at the lung bases. This may represent early infiltrate. There is no demonstrated pleural abnormality. Normal size heart. Normal mediastinum and anne marie. Normal visualized pulmonary arteries. Normal visualized aortic arch and descending thoracic aorta. Normal visualized thoracic spine. Healed right rib fractures There is no demonstrated abnormality of the visualized soft tissue structures of the upper abdomen. RAD/Chest 1 View (Portable) IMPRESSION: Mild increased markings at the lung bases. Follow-up is recommended. Electronically Signed: Yuri Haile MD at 13:24 EDT , Service support ,
[2021-02-10 13:12] VITALS: BP 96/69; PULSE 80; RESP 16; O2SAT 100
== END 2021-02-10 13:13 | disposition home or self-care (01) ==
PROVIDERS: Emergency Provider Emergency Medicine
DX: U07.1 COVID-19 (principal)
CPT/HCPCS: 71045; 80048; 96361; 96374; 99283; J7030; A4216; J2405

== ENCOUNTER 2021-06-16 17:50 | Emergency (ER) | payer MEDICAID, SELFPAY ==
[2021-06-16 17:51] VITALS: BP 140/110; PULSE 120; RESP 16; TEMP 36.6; O2SAT 100; BMI 21.9
[2021-06-16] MEDS: Clindamycin HCl 150 MG Capsule 450 MG PO (18:46)
--- NOTE | 2021-06-16 19:40 | EX.ED.DYSGE1 ---
HPI History of Present Illness Chief Complaint: Abscess Narrative Narrative: 45-year-old female presenting with what she is concerned is abscesses in the bilateral armpits. She states has been here for a few days. She is not had this previously. She denies history of abscess or MRSA. She states that these are not draining at all. She is not having any fever or chills. She states that she is stressed out at home because she is taking care of her mother who has end-stage COPD and she is often anxious with her own daughter caring for her. She does not have a primary care provider. PFSH PFSH Home Medications ondansetron 4 mg PO Q8H PRN 4 Days #10 tab 02/10/21 [Rx Last Taken Unknown] clindamycin HCl 450 mg PO TID 10 Days #90 cap 06/16/21 [Rx Last Taken Unknown] oxycodone-acetaminophen [Endocet] 1 tab PO Q6H PRN 3 Days #12 tab 06/16/21 [Rx Last Taken Unknown] Allergy/AdvReac Type Severity Reaction Status Date / Time acetaminophen [From Vicodin] AdvReac Nausea Verified 06/16/21 17:53 hydrocodone [From Vicodin] AdvReac Nausea Verified 06/16/21 17:53 hydromorphone HCl AdvReac Nausea Verified 06/16/21 17:53 [From Dilaudid] Social History Smoking Status: Never smoker substance use type: does not use ROS ROS ED Constitutional Constitutional ED: Denies chills or fever(s) Eyes Eyes: Denies blurry vision or change in vision ENT ENT ED: Denies rhinorrhea or sore throat Cardiovascular Cardiovascular: Denies chest pain or palpitations Respiratory/Chest Respiratory/Chest: Denies cough or dyspnea Gastrointestinal Gastrointestinal: Denies abdominal pain, diarrhea, nausea or vomiting Genitourinary Genitourinary ED: Denies dysuria Musculoskeletal Musculoskeletal: Denies arthralgias or myalgias Integumentary Reports other Details: Axillary lymphadenopathy with mild overlying erythema bilaterally Neurologic Neurologic: Denies headache(s) or weakness Psychiatric Psychiatric: Denies anxiety or depression EXAM Physical Exam Const Vital Signs: 06/16/21 17:51 Temperature 97.8 F Temperature Source Temporal Pulse Rate 120 H Respiratory Rate 16 Blood Pressure 140/110 H Blood Pressure Mean 120 Pulse Ox 100 Oxygen Delivery Method Room Air Positive well nourished General Appearance ED: NAD HEENT Reports moist mucous membranes Negative for trauma Eyes PERRL and EOMs intact bilaterally Lymph Lymphatic: lymphadenopathy Lymphadenopathy Laterality: bilateral Lymphatic Narrative: Bilateral axillary lymphadenopathy with overlying erythema. Chest Wall inspection of chest normal and palpation of chest normal Resp normal respiratory effort and clear to auscultation bilaterally Cardio regular rate and regular rhythm Neuro oriented x3 Sensorium / Orientation: alert Psych mental status grossly normal Skin Skin Narrative: As noted above MDM MDM MDM Narrative Medical decision making narrative: Findings most consistent with hidradenitis suppurativa. I counseled the patient of this. She does have some overlying skin change and irritation which may represent a mild early cellulitis in the right axilla. I do not believe these need to be incised or drained. I will start her on antibiotics for the overlying skin infection. She is given medication for pain control. She is also given follow-up with Dr. Saravia. Impression: 1. Hidradenitis suppurativa Discharge Plan Triage Chief Complaint: Abscess ED Provider: Prashanth Monge Dx/Rx/DC Orders Prescriptions: New clindamycin HCl 150 mg capsule 450 mg PO TID 10 Days Qty: 90 RF: 0 oxycodone-acetaminophen [Endocet] 5-325 mg tablet 1 tab PO Q6H PRN (Reason: pain) 3 Days Qty: 12 RF: 0 No Action ondansetron 4 mg tablet,disintegrating 4 mg PO Q8H PRN (Reason: nausea and vomiting) 4 Days Qty: 10 RF: 0 Primary Care Provider: Care Physician,No Primary Referrals: Sergio Saravia MD [STAFF PHYSICIAN] - As soon as possible Care Physician,No Primary [Primary Care Provider] - Disposition Disposition: Home, Self Care Discharge Date/Time: 06/16/21 18:47
== END 2021-06-16 18:47 | disposition home or self-care (01) ==
LOC: ED 18:40
PROVIDERS: Emergency Provider Student in an Organized Health Care Education/Training Program
DX: L73.2 Hidradenitis suppurativa (principal)
CPT/HCPCS: 99282

== ENCOUNTER 2021-10-15 04:48 | Emergency (ER) | payer MEDICAID, SELFPAY ==
[2021-10-15 04:49] VITALS: BP 129/92; PULSE 79; RESP 18; TEMP 36.2; O2SAT 100; BMI 21.9
--- NOTE | 2021-10-15 05:02 | CT_ITS ---
EXAM: CT Cervical Spine Without Intravenous Contrast CLINICAL INDICATION: 46 years old, Female; head injury TECHNIQUE: Helically acquired images were obtained of the cervical spine without intravenous contrast. 2D reformatted images were reviewed. This CT exam was performed using one or more of the following dose reduction techniques: automated exposure control, adjustment of the mA and/or kV according to patient size, and/or use of iterative reconstruction technique. This report was created using [employer] report generation technology. RADIATION DOSE: CTDIvol = 9.74 mGy, DLP = 214.41 mGy-cm COMPARISON: None. FINDINGS: Vertebrae: Unremarkable. No fracture. No traumatic subluxation. No discrete lytic or blastic abnormality. Normal alignment. Normal craniocervical junction and cervicothoracic junction. Discs/spinal canal/neural foramina: Degenerative disc disease lower cervical spine. No critical stenosis. Soft tissues: Unremarkable. No prevertebral soft tissue swelling. Lymph nodes: Unremarkable. No cervical adenopathy. Lung apices: Unremarkable as visualized. Clear. CT/Spine Cervical without Contras IMPRESSION: Degenerative disc disease lower cervical spine. Electronically Signed: Gene Abarca MD at 5:40 EDT ,
--- NOTE | 2021-10-15 05:02 | CT_ITS ---
EXAM: CT Head Without Intravenous Contrast CLINICAL INDICATION: 46 years old, Female; head injury TECHNIQUE: Multiple axial images were obtained of the head without intravenous contrast. This CT exam was performed using one or more of the following dose reduction techniques: automated exposure control, adjustment of the mA and/or kV according to patient size, and/or use of iterative reconstruction technique. This report was created using [employer] report generation technology. RADIATION DOSE: CTDIvol = 47.06 mGy, DLP = 890.33 mGy-cm COMPARISON: None. FINDINGS: Brain and extra-axial spaces: Unremarkable. No intra- or extra-axial hemorrhage. No evidence of acute infarct. No intracranial mass or mass effect. There is preservation of the san/white matter interface. Posterior fossa structures are unremarkable. Ventricles are appropriate for age. No hydrocephalus. Basal cisterns are patent. Bones/joints: Unremarkable. No discrete lytic or blastic abnormalities. Sinuses: Mucosal thickening right maxillary sinus. Mastoid air cells: Unremarkable. Clear. Orbits: Visualized globes, extraocular muscles, optic nerves and retrobulbar fat appear unremarkable. CT/Brain/Head without Contrast IMPRESSION: No acute findings in the head/brain. Electronically Signed: Gene Abarca MD at 5:38 EDT ,
--- NOTE | 2021-10-15 05:05 | RAD_ITS ---
EXAM: XR Left Ankle Complete, 3 or More Views CLINICAL INDICATION: 46 years old, Female; pain TECHNIQUE: Frontal, lateral and oblique views of the left ankle. This report was created using [employer] report generation technology. COMPARISON: None. FINDINGS: Bones/joints: Comminuted fracture of the calcaneus. Preservation of the joint space. No sclerotic or destructive changes observed. Soft tissues: Soft tissue edema around the hindfoot. No radiopaque foreign body. RAD/Ankle min 3 Views IMPRESSION: 1. Comminuted fracture of the calcaneus. 2. Soft tissue edema around the hindfoot. Electronically Signed: Gene Abarca MD at 6:30 EDT ,
--- NOTE | 2021-10-15 05:10 | RAD_ITS ---
EXAM: XR Left Foot Complete, 3 or More Views CLINICAL INDICATION: 46 years old, Female; pain TECHNIQUE: Frontal, lateral and oblique views of the left foot. This report was created using [employer] report generation technology. COMPARISON: None. FINDINGS: Bones/joints: Comminuted fracture of the calcaneus. Preservation of the joint space. No sclerotic or destructive changes observed. Soft tissues: Unremarkable. No soft tissue swelling or gas. No radiopaque foreign body. RAD/Foot min 3 Views IMPRESSION: Comminuted fracture of the calcaneus. Electronically Signed: Gene Abarca MD at 6:26 EDT ,
--- NOTE | 2021-10-15 05:14 | RAD_ITS ---
EXAM: XR Lumbosacral Spine, 2 or 3 Views CLINICAL INDICATION: 46 years old, Female; pain TECHNIQUE: Frontal and lateral views of the lumbar spine and sacrum. This report was created using [employer] report [employer] technology. COMPARISON: None. FINDINGS: Vertebrae: Unremarkable. Preserved vertebral body height. No fracture. No spondylolisthesis. Preservation of the normal lumbar lordosis. No significant facet arthropathy. Disc spaces: No acute findings. Disc spaces are maintained. Gastrointestinal tract: Unremarkable as visualized. Included bowel gas pattern is non-obstructive. RAD/Lumbar Spine 2 or 3 Views IMPRESSION: No evidence of lumbar spinal fracture or spondylolisthesis. Electronically Signed: Gene Abarca MD at 6:24 EDT ,
--- NOTE | 2021-10-15 05:21 | RAD_ITS ---
EXAM: XR Pelvis, 1 or 2 Views CLINICAL INDICATION: 46 years old, Female; pain TECHNIQUE: Frontal view of the pelvis. This report was created using [employer] report generation technology. COMPARISON: None. FINDINGS: Bones/joints: Unremarkable. No displaced fracture. No destructive or sclerotic lesions. Note that overlapping bowel shadows may however obscure fine detail. Sacroiliac joints are unremarkable. No widening of the pubic symphysis. The articular structures are unremarkable. Soft tissues: Unremarkable. No soft tissue swelling or gas. RAD/Pelvis 1 or 2 Views IMPRESSION: No evidence of displaced pelvic fracture. Electronically Signed: Gene Abarca MD at 6:24 EDT ,
--- NOTE | 2021-10-15 05:22 | RAD_ITS ---
EXAM: XR Right Ankle Complete, 3 or More Views CLINICAL INDICATION: 46 years old, Female; PAIN TECHNIQUE: Frontal, lateral and oblique views of the right ankle. This report was created using [employer] report generation technology. COMPARISON: None. FINDINGS: Bones/joints: Comminuted fracture of the distal tibia which extends to the articular surface at the tibiotalar joint. No sclerotic or destructive changes observed. Soft tissues: Soft tissue edema around the ankle. No radiopaque foreign body. RAD/Ankle min 3 Views IMPRESSION: 1. Comminuted fracture of the distal tibia which extends to the articular surface at the tibiotalar joint. 2. Soft tissue edema around the ankle. Electronically Signed: Gene Abarca MD at 6:32 EDT ,
--- NOTE | 2021-10-15 05:25 | RAD_ITS ---
EXAM: XR Right Foot Complete, 3 or More Views CLINICAL INDICATION: 46 years old, Female; PAIN TECHNIQUE: Frontal, lateral and oblique views of the right foot. This report was created using [employer] report generation technology. COMPARISON: None. FINDINGS: Bones/joints: Comminuted fracture of the tibia. Preservation of the joint space. No sclerotic or destructive changes observed. Soft tissues: Soft tissue edema around the ankle. No radiopaque foreign body. RAD/Foot min 3 Views IMPRESSION: 1. Comminuted fracture of the tibia. 2. Soft tissue edema around the ankle. Electronically Signed: Gene Abarca MD at 6:28 EDT ,
--- NOTE | 2021-10-15 05:28 | EX.ED.DYSGE1 ---
HPI History of Present Illness Chief Complaint: Trauma Narrative Narrative: Patient is a 46-year-old female with reported history of drug abuse. Police state that this evening they went to a motel and they knocked on her door. In order to run from the police the patient jumped out of the second story window of the motel. She states that she did not strike her head or have any loss of consciousness. Police state that she was able to crawl underneath a car and once they took the patient into custody she then began complaining of pain to her feet and ankles. Therefore with the fact she did jump from a second story window and now is complaining of pain she was brought in for evaluation [facility] Home Medications NK 10/15/21 [History Last Taken Unknown] Allergy/AdvReac Type Severity Reaction Status Date / Time acetaminophen [From Vicodin] AdvReac Nausea Verified 10/15/21 04:52 hydrocodone [From Vicodin] AdvReac Nausea Verified 10/15/21 04:52 hydromorphone HCl AdvReac Nausea Verified 10/15/21 04:52 [From Dilaudid] Social History Smoking Status: Never smoker substance use type: does not use ROS ROS ED Constitutional Constitutional ED: Denies chills or fever(s) Eyes Eyes: Denies change in vision ENT ENT ED: Denies sore throat Cardiovascular Cardiovascular: Denies chest pain Respiratory/Chest Respiratory/Chest: Denies cough or dyspnea Gastrointestinal Gastrointestinal: Denies abdominal pain, diarrhea, nausea or vomiting Genitourinary Genitourinary ED: Denies dysuria Musculoskeletal Musculoskeletal: Reports arthralgias; Denies back pain, myalgias or neck pain Integumentary Reports Abrasions; Denies rash Neurologic Neurologic: Denies headache(s) Hematologic/Lymphatic Hematologic/Lymphatic: Denies easy bleeding or easy bruising EXAM Physical Exam Const Vital Signs: 10/15/21 04:49 10/15/21 05:45 10/15/21 06:09 Temperature 97.2 F L Temperature Source Temporal Pulse Rate 79 Respiratory Rate 18 17 Respiratory Effort Normal Blood Pressure 129/92 H Blood Pressure Mean 104 Pulse Ox 100 Oxygen Delivery Method Room Air Room Air Positive well nourished and well developed General Appearance ED: well developed HEENT HEENT Narrative: No signs of depressed or basilar skull fracture Eyes PERRL and EOMs intact bilaterally Neck supple Neck Narrative: No bony deformity or step-off of the cervical spine no midline pain with palpation Chest Wall palpation of chest normal Chest Narrative: No bony deformity or crepitance Resp normal respiratory effort and clear to auscultation bilaterally Cardio regular rate and regular rhythm GI non-tender and non-distended GI Narrative: Bowel sounds are hypoactive otherwise no voluntary guarding or rigidity no distention or fluid wave or pulsatile mass Palpation: soft Back/Spine Back/Spine Narrative: Bony deformity or step-off of the thoracic or lumbar spine no midline pain with palpation Extremity Extremity Narrative: Bilateral upper and lower extremities are neurovascularly intact. There is no obvious bony deformity or joint effusion to the bilateral shoulders elbows or wrist/hand. Negative sulcus sign bilaterally. The pelvis is stable there is no shortening or external rotation of either lower extremity. Patient does have soft tissue swelling along the distal right lower leg/ankle. There is mild ecchymosis at the site. There is grinding present with passive motion concerning for fracture. Patient also has pain with palpation of the left heel with soft tissue swelling. Active and passive range of motion is severely limited secondary to pain. The patient does have old ecchymotic changes to the bilateral legs. Neuro oriented x3 and CN's II-XII intact bilaterally Sensorium / Orientation: alert Psych Attitude: agitated Skin Skin Narrative: Old ecchymotic lesions to the bilateral legs. MDM MDM MDM Narrative Medical decision making narrative: Patient arrived to the ER hemodynamically stable without signs of trauma to her head or neck. However she did have reported pain in her bilateral lower legs and there was some swelling and physical exam findings to suggest possible underlying bony injury. Multiple imaging studies were obtained and this does show a comminuted left calcaneal fracture and a comminuted right distal tibia fracture. The case was discussed with orthopedics on-call and they do not feel that is appropriate to keep those types of injuries at our facility and therefore recommend transfer. Therefore patient will be sent to [facility] emergency department as an ER to ER transfer secondary to the trauma. She was placed in a right stirrup splint for stabilization and a left posterior tibial as documented below. The patient's cath urine sample showed a large amount of blood so therefore a CT of the abdomen and pelvis will be ordered to rule out internal bleeding/renal contusion. She also complained of increased back pain despite initially having no pain on palpation of her lumbar spine and x-rays being negative so a CT will be added for the lumbar spine as well. Patient had a Ortho-Glass stirrup splint applied to the right lower leg. The splint fit with good approximation of the fracture fragment and following application capillary refill remained less than 3-second. Patient also had a Ortho-Glass posterior tibial splint applied to the left lower leg. This splint also feel good approximation of the fracture fragments and following application capillary refill remained less than 3 seconds. Patient tolerated these procedures well without complication Lab Data Attestation: I reviewed the patient's lab results. Labs: Laboratory Results - last 24 hr 10/15/21 10/15/21 10/15/21 06:00 06:00 06:00 WBC 10.6 RBC 3.96 L Hgb 12.2 Hct 37.6 MCV 94.9 MCH 30.8 MCHC 32.4 RDW Std Deviation 43.9 RDW Coeff of Yaneth 12.5 Plt Count 240 MPV 9.6 Immature Gran % (Auto) 0.900 Neut % (Auto) 76.1 H Lymph % (Auto) 15.2 L Hawkins % (Auto) 5.3 Eos % (Auto) 2.0 Baso % (Auto) 0.5 Absolute Neuts (auto) 8.1 H Absolute Lymphs (auto) 1.60 Nucleated RBC % 0 Sodium 140 Potassium 3.4 L Chloride 110 H Carbon Dioxide 25.0 Anion Gap 5 BUN 19 H Creatinine 0.90 Estim Creat Clear Calc 56.10 Est GFR (MDRD) Af Amer 86 Est GFR (MDRD) Non-Af 71 BUN/Creatinine Ratio 21.0 H Glucose 134 H Calcium 8.5 Serum , Qual Urine Color Urine Clarity Urine pH Ur Specific [place] Urine Protein Urine Glucose (UA) Urine Ketones Urine Occult Blood Urine Nitrite Urine Bilirubin Urine Urobilinogen Ur Leukocyte Esterase Ur Drug Screen Comment Ethyl Alcohol < 3.0 10/15/21 10/15/21 10/15/21 06:00 06:45 06:45 WBC RBC Hgb Hct MCV MCH MCHC RDW Std Deviation RDW Coeff of Yaneth Plt Count MPV Immature Gran % (Auto) Neut % (Auto) Lymph % (Auto) Hawkins % (Auto) Eos % (Auto) Baso % (Auto) Absolute Neuts (auto) Absolute Lymphs (auto) Nucleated RBC % Sodium Potassium Chloride Carbon Dioxide Anion Gap BUN Creatinine Estim Creat Clear Calc Est GFR (MDRD) Af Amer Est GFR (MDRD) Non-Af BUN/Creatinine Ratio Glucose Calcium Serum , Qual NEGATIVE Urine Color Yellow Urine Clarity Sl. Cloudy Urine pH 6.0 Ur Specific [place] 1.025 Urine Protein 30 H Urine Glucose (UA) Normal Urine Ketones 5 H Urine Occult Blood 250 H Urine Nitrite Positive H Urine Bilirubin Negative Urine Urobilinogen Normal Ur Leukocyte Esterase 25 H Ur Drug Screen Comment Ethyl Alcohol Radiography Diagnostic Testing: Clinical Impression(s) from Imaging Studies Brain CT 10/15/21 05:02 IMPRESSION: No acute findings in the head/brain. Electronically Signed: Gene Abarca MD at 5:38 EDT , Cervical Spine CT 10/15/21 05:02 IMPRESSION: Degenerative disc disease lower cervical spine. Electronically Signed: Gene Abarca MD at 5:40 EDT , Ankle X-Ray 10/15/21 05:05 IMPRESSION: 1. Comminuted fracture of the calcaneus. 2. Soft tissue edema around the hindfoot. Electronically Signed: Gene Abarca MD at 6:30 EDT , Foot X-Ray 10/15/21 05:10 IMPRESSION: Comminuted fracture of the calcaneus. Electronically Signed: Gene Abarca MD at 6:26 EDT , Lumbar Spine X-Ray 10/15/21 05:14 IMPRESSION: No evidence of lumbar spinal fracture or spondylolisthesis. Electronically Signed: Gene Abarca MD at 6:24 EDT , Pelvis X-Ray 10/15/21 05:21 IMPRESSION: No evidence of displaced pelvic fracture. Electronically Signed: Gene Abarca MD at 6:24 EDT , Ankle X-Ray 10/15/21 05:22 IMPRESSION: 1. Comminuted fracture of the distal tibia which extends to the articular surface at the tibiotalar joint. 2. Soft tissue edema around the ankle. Electronically Signed: Gene Abarca MD at 6:32 EDT , Foot X-Ray 10/15/21 05:25 IMPRESSION: 1. Comminuted fracture of the tibia. 2. Soft tissue edema around the ankle. Electronically Signed: Gene Abarca MD at 6:28 EDT , X-ray of the lumbar spine is interpreted by the emergency medicine physician reveals no acute fracture or dislocation X-ray of the pelvis as interpreted by the emergency medicine physician reveals no acute fracture dislocation X-ray of the bilateral feet and ankles as interpreted by the emergency medicine physician shows a comminuted left calcaneal fracture and a comminuted right distal tibia fracture. Discharge Plan Triage Chief Complaint: Trauma ED Provider: Mike Ayon Dx/Rx/DC Orders Clinical Impression: Closed left calcaneal fracture, Closed right tibial fracture, Hematuria Prescriptions: No Action NK RF: 0 Primary Care Provider: Care Physician,No Primary Referrals: Care Physician,No Primary [Primary Care Provider] - Disposition Disposition: Acute Care Hospital Discharge Location: [facility]
[2021-10-15 06:09] VITALS: RESP 17
[2021-10-15] MEDS: morphine 8 MG/ML Syringe 6 MG IV ×2 (06:11→06:49)
[2021-10-15] MEDS: Ondansetron 4 MG/2 ML Vial IV (06:12)
[2021-10-15] MEDS: 0.9% Normal Saline 1,000 ML 999 ML IV (06:12)
[2021-10-15 06:15] LABS: Absolute Neutrophil Count 8.1 X10^3/uL (2.0-7.7); Basophil# 0.05 X10^3/uL; Basophil% 0.5 % (0-1); Eosinophil# 0.21 X10^3/uL; Hematocrit 37.6 % (37-47); Hemoglobin 12.2 g/dL (12.0-15.0); Lymphocyte % 15.2 % (19-41); Mean Corp Hgb Conc 32.4 g/dL (32-36); Mean Corpuscular Hgb 30.8 pg (27.0-32.0); Mean Corpuscular Volume 94.9 fL (81-99); Mean Platelet Vol. 9.6 fl (6.2-12.0); Monocyte# 0.56 X10^3/uL; Monocyte% 5.3 % (0-10); NRBC Flagged by Analyzer 0 % (0-5); Neutrophil # 8.05 X10^3/uL (2.7-7.7); Neutrophil % 76.1 % (47-70); Platelet Count 240 K/mm3 (150-450); RBC Distribution Width CV 12.5 % (11.6-14.6); RBC Distribution Width SD 43.9 fl (35.1-43.9); Red Blood Count 3.96 M/mm3 (4.2-5.4); White Blood Count 10.6 K/mm3 (4.4-11.0)
[2021-10-15 06:26] LABS: Anion Gap 5 (5-15); BUN 19 mg/dL (7-18); Calcium,Total 8.5 mg/dL (8.5-10.1); Chloride 110 mmol/L (98-107); EST Glomerular Filtration Rate 71 mL/min (>60); Est Glom Filt Rate - Afr Amer 86 mL/min (>60); Glucose 134 mg/dL (74-106); Potassium 3.4 mmol/L (3.5-5.1); Sodium Level 140 mmol/L (136-145)
[2021-10-15 06:38] LABS: Internal QC Validated? YES +Cl - CLEAR BKGD; Pregnancy, Serum, hCG Quali. NEGATIVE Negative
[2021-10-15 06:41] LABS: Alcohol, Blood (Medical)-Serum < 3.0 mg/dL
[2021-10-15 07:01] LABS: Color, Urine Yellow (Yellow); Glucose, Dipstick Normal (Normal); Ketone-Dipstick 5 mg/dl (Negative); Leukocyte Esterase-Dipstick 25 /ul (Negative); Nitrite-Dipstick Positive (Negative); Occult Blood-Urine 250 /ul (Negative); Protein-Dipstick 30 mg/dl (Negative); Specific Gravity, Urine 1.025 (1.002-1.030); Urine Bilirubin Dipstick Negative (Negative); Urine Clarity Sl. Cloudy (Clear); Urine Urobilinogen Normal (Normal)
--- NOTE | 2021-10-15 07:02 | RAD_ITS ---
STUDY: X-RAY CHEST REASON FOR EXAM: Female, 46 years old. fall TECHNIQUE: Single AP portable view of the chest. COMPARISON: 02/10/2021 FINDINGS: The lungs are clear and expanded. There is no demonstrated pleural abnormality. Normal size heart. Normal mediastinum and anne marie. Normal visualized pulmonary arteries. Normal visualized aortic arch and descending thoracic aorta. Normal visualized thoracic spine. Normal visualized ribs, clavicles, and shoulders. There is no demonstrated abnormality of the visualized soft tissue structures of the upper abdomen. RAD/Chest 1 View (Portable) IMPRESSION: Normal x-ray examination of the chest. Electronically Signed: Alexandru Perez MD at 8:31 EDT ,
--- NOTE | 2021-10-15 07:03 | CT_ITS ---
EXAM: CT Abdomen and Pelvis With Intravenous Contrast CLINICAL INDICATION: 46 years old, Female; ? Renal contusion TECHNIQUE: Helically acquired images were obtained of the abdomen and pelvis with intravenous contrast. This CT exam was performed using one or more of the following dose reduction techniques: automated exposure control, adjustment of the mA and/or kV according to patient size, and/or use of iterative reconstruction technique. This report was created using [employer] report generation technology. CONTRAST: 75 ML ISOVUE 300 RADIATION DOSE: CTDIvol = 5.64 mGy, DLP = 234.22 mGy-cm COMPARISON: None. FINDINGS: Lower thorax: Atelectasis posterior lungs. No cardiomegaly. No significant pericardial effusion. ABDOMEN: Liver: Unremarkable. Homogeneous. No focal mass. Gallbladder and bile ducts: Unremarkable. No calcified gallstones. No gallbladder distention or wall edema. No intra- or extrahepatic biliary ductal dilation. Pancreas: Unremarkable. No focal cystic or solid mass. Spleen: Unremarkable. Normal size without focal cystic or solid mass. Adrenals: Unremarkable. No nodules. Kidneys and ureters: Unremarkable. Normal renal size and position. No hydronephrosis. Stomach and bowel: Unremarkable. No stomach or bowel distention. No focal inflammatory change. PELVIS: Appendix: Normal appendix. Bladder: Sanders catheter in the bladder. Reproductive: Unremarkable as visualized. No mass. Subperitoneal space: Ill-defined hemorrhage in the presacral space. ABDOMEN and PELVIS: Intraperitoneal space: Unremarkable. No ascites or other fluid collection. No free air. Bones/joints: Displaced bilateral sacral alar fractures. These fractures cross midline at the S2 level. Left L3 transverse process fracture which may be chronic. No suspicious lytic or blastic abnormality. Soft tissues: Unremarkable. No discrete abdominal or pelvic wall hernia. Vasculature: Unremarkable. Abdominal aorta is non-dilated. Lymph nodes: Unremarkable. No enlarged lymph nodes. Other findings: Probable glandular cyst in the right perineum. CT/Abdomen/Pelvis W IV Cont ONLY IMPRESSION: 1. Displaced bilateral sacral alar fractures. These fractures cross midline at the S2 level. 2. Ill-defined hemorrhage in the presacral space. 3. Left L3 transverse process fracture which may be chronic. Electronically Signed: Gene Abarca MD at 7:57 EDT ,
--- NOTE | 2021-10-15 07:03 | CT_ITS ---
STUDY: CT LUMBAR SPINE WITHOUT CONTRAST REASON FOR EXAM: Female, 46 years old. fall RADIATION DOSAGE (If Supplied By Facility): CTDIvol = ( 9.46 ) mGy, DLP = ( 260.91 ) mGycm TECHNIQUE: The patient was scanned in a multi detector CT scanner. High resolution transaxial imaging was performed. Images were obtained from T12 to S1. Sagittal and coronal images were reconstructed. Individualized dose optimization techniques were used for this CT. COMPARISON: X-ray earlier today FINDINGS: Normal lumbar lordosis. There is no substantial scoliosis. Chronic nondisplaced fracture the left transverse process of L3. Acute nondisplaced fracture the right transverse process of L5. Acute fractures of the sacral ala bilaterally, comminuted on the right.. L1-2: Normal endplates. Normal disc height and morphology. Normal bilateral facet joints. Normal central canal and bilateral lateral recesses. Normal bilateral intervertebral neural foramina. L2-3: Normal endplates. Normal disc height and morphology. Normal bilateral facet joints. Normal central canal and bilateral lateral recesses. Normal bilateral intervertebral neural foramina. L3-4: Normal endplates. Normal disc height and morphology. Normal bilateral facet joints. Normal central canal and bilateral lateral recesses. Normal bilateral intervertebral neural foramina. L4-5: Normal endplates. Normal disc height and morphology. Normal bilateral facet joints. Normal central canal and bilateral lateral recesses. Normal bilateral intervertebral neural foramina. L5-S1: Normal endplates. Normal disc height and morphology. Normal bilateral facet joints. Normal central canal and bilateral lateral recesses. Normal bilateral intervertebral neural foramina. Normal visualized paraspinous soft tissue structures. CT/Spine Lumbar without Contrast IMPRESSION: Acute fractures the right transverse process of L5 and bilateral sacral ala comminuted fracture of the right Electronically Signed: Alexandru Perez MD at 8:31 EDT ,
[2021-10-15 07:24] LABS: Amphetamine Urine VISTA POSITIVE (<1000 ng/mL); Barbiturate Urine VISTA NEGATIVE (< 200 ng/mL); Benzodiazepine Urine VISTA NEGATIVE (< 200 ng/mL); Cocaine Urine VISTA NEGATIVE (< 300 ng/mL); Ecstacy Urine VISTA POSITIVE (< 500 ng/mL); Methadone Urine VISTA NEGATIVE (< 300 ng/mL); PCP Urine VISTA NEGATIVE (< 25 ng/mL); THC Urine VISTA POSITIVE (< 50 ng/mL); Vista UDS pH Range 6
[2021-10-15 07:29] LABS: White Blood Cells 5-10 SEEN /hpf (0-5)
[2021-10-15 07:30] LABS: Bacteria 3+ /hpf (None Seen); Mucous, Urine 1+ /hpf (<or=2+); Red Blood Cells-Urine 25-50 SEEN /hpf (0-5)
[2021-10-15 07:31] LABS: Squamous Epithelial Cells - UA 0-5 SEEN /hpf (5-10)
[2021-10-15 08:08] VITALS: BP 149/73; PULSE 100; RESP 16; O2SAT 97
[2021-10-15 08:21] VITALS: BP 135/74; PULSE 100; RESP 15; O2SAT 98
== END 2021-10-15 08:22 | disposition short-term general hospital (02) ==
PROVIDERS: Emergency Provider Emergency Medicine; Visit Provider Emergency Medicine
DX: S92.002A Unspecified fracture of left calcaneus, initial encounter for closed fracture (principal); F19.10 Other psychoactive substance abuse, uncomplicated; W13.4XXA Fall from, out of or through window, initial encounter; Y93.39 Activity, other involving climbing, rappelling and jumping off; Y92.9 Unspecified place or not applicable; S82.251A Displaced comminuted fracture of shaft of right tibia, initial encounter for closed fracture; R31.9 Hematuria, unspecified; M54.50 Low back pain, unspecified
CPT/HCPCS: 29515; 70450; 71045; 72100; 72125; 72131; 72170; 73610; 73630; 74177; 80048; 80307; 81001; 82077; 84703; 85025; 96361; 96374; 96375; 99285; J7030; Q9967; A4216; J2405